=== PATIENT | female | born 1995 | race Caucasian/White ===

== ENCOUNTER → 2019-12-02 16:12 | Observation (INO) | END | disposition home or self-care (01) | LOC: 1NENULAB | PROVIDERS: ADMIT Advanced Practice Midwife; ATTEND Advanced Practice Midwife ==

== ENCOUNTER 2019-12-08 01:40 | Observation (INO) ==
[2019-12-08] MEDS ORDERED: Famotidine 20 MG/2 ML VIAL IVP PRN (01:53)
[2019-12-08] MEDS ORDERED: Metoclopramide 10 MG/2 ML VIAL IVP PRN (01:53)
[2019-12-08] MEDS ORDERED: Ondansetron 4 MG/2 ML VIAL IVP PRN (01:53)
[2019-12-08] MEDS ORDERED: Lidocaine 1% 20 ML MDV INFILT PRN (01:53)
[2019-12-08] MEDS ORDERED: *HR* FentaNYL (PF) 100 MCG/2 ML VIAL IVP PRN (01:53)
[2019-12-08] MEDS ORDERED: Naloxone 0.4 MG/ML INJ IVP PRN (01:53)
[2019-12-08 02:25] LABS: Basophils % 0.3 %; Eosinophils # 0.3 K/mcL (0.0-0.6); Eosinophils % 2.8 %; Hemoglobin 11.9 g/dL (11.5-15.4); Immature Granulocytes % 0.6 % (0-4); Lymphocytes % 24.8 %; Mean Corpuscular HGB Conc 31.3 g/dL (31.6-35.5); Mean Corpuscular Hemoglobin 26.8 pg (28.0-33.3); Mean Corpuscular Volume 85.6 fL (83.0-100.0); Mean Platelet Volume 13.1 fL (9.4-12.4); Monocytes # 1.1 K/mcL (0.0-1.3); Neutrophils # 7.5 K/mcL (1.6-8.9); Platelet Count 178 K/mcL (140-400); Red Blood Count 4.44 M/mcL (3.82-4.97); Red Cell Distribution Width 14.4 % (11.5-14.5); Segmented Neutrophils % 62.5 %
[2019-12-08] MEDS ORDERED: Ringers Solution, Lactated 1,000 ML ONE (02:28)
[2019-12-08 02:34] LABS: Amphetamine Screen,Urine Negative ng/mL (Cutoff=1000); Barbiturate Screen,Urine Negative ng/mL (Cutoff=200); Benzodiazepines Screen,Urine Negative ng/mL (Cutoff=200); Cannabinoid Screen,Urine Negative ng/mL (Cutoff = 50); Cocaine Screen,Urine Negative ng/mL (Cutoff= 300); Opiate Screen,Urine Negative ng/mL (Cutoff=300); Phencyclidine Screen,Urine Negative ng/mL (Cutoff=25)
[2019-12-08] MEDS ORDERED: *HR* FentaNYL (PF) 100 MCG/2 ML VIAL EP ONE (02:52)
[2019-12-08] MEDS ORDERED: Bupivacaine-MPF 0.25% 10 ML VIAL EP ONE (02:52)
[2019-12-08] MEDS ORDERED: EPHEDrine 50 MG/ML VIAL IVP PRN (02:52)
[2019-12-08] MEDS ORDERED: *HR* FentaNYL (PF) 100 MCG/2 ML VIAL ONE (02:53)
[2019-12-08] MEDS ORDERED: Bupivacaine-MPF 0.25% 10 ML VIAL ONE (02:53)
[2019-12-08] MEDS ORDERED: Epidural Premix (fent/bupiv) 110 ML EP SCH (03:00)
[2019-12-08] MEDS: Ringers Solution, Lactated 1,000 ML IVC SCH ×2 (03:45→03:49)
[2019-12-08] MEDS ORDERED: Oxytocin 20 units/ LR 1000 mL 20 UNIT/1,000 ML BAG IVC SCH ×2 (05:45→13:33)
[2019-12-08] MEDS ORDERED: Measles/Mumps/Rubella Vacc 0.5 ML VIAL SQ PRN (13:33)
[2019-12-08] MEDS ORDERED: Benzocaine/Menthol 56 GM AEROSOL SPRAY TP PRN (13:33)
[2019-12-08] MEDS ORDERED: Ibuprofen 600 MG TABLET PO PRN (13:33)
[2019-12-08] MEDS ORDERED: Acetaminophen 325 MG TABLET PO PRN (13:33)
[2019-12-08] MEDS ORDERED: *HR* HYDROcodone/Acet 5/325 mg TABLET PO PRN (13:33)
[2019-12-09 08:08] VITALS: BP 95/60
[2019-12-09] MEDS ORDERED: Prenatal Vit/FA 1 EACH TABLET PO SCH (09:00)
== END 2019-12-09 13:11 | disposition home or self-care (01) ==
LOC: 1NENULAB → OBSVTOIN 01:40 → INTOOBSV 01:40 → 1NENULAB 01:57 → 1NENUOBS 13:26
PROVIDERS: ADMIT Advanced Practice Midwife; ATTEND Advanced Practice Midwife

== ENCOUNTER 2022-05-11 11:33 | Observation (INO) ==
[2022-05-11 12:07] LABS: Bacteria,Urine Few per hpf (None-Few); Bilirubin,Urine Negative (Negative); Blood,Urine Small (Negative); Clarity,Urine Turbid (Clear); Color,Urine Yellow (Yellow); Glucose,Urine (UA) 50 mg/dL (Normal); Ketones,Urine Trace mg/dL (Negative); Leukocyte Esterase,Urine Small (Negative); Mucus,Urine Few per lpf (None-Few); Nitrite,Urine Negative (Negative); Protein,Urine 30 mg/dL (Neg-Trace); RBC,Urine 30-50 per hpf (0-3); Squamous Epithelial Cell,Urine Few per hpf (None-Few); Urobilinogen,Urine Normal (Normal)
[2022-05-12] MEDS ORDERED: Prenatal Vit/FA 1 EACH TABLET PO SCH (09:00)
== END 2022-05-11 13:07 | disposition home or self-care (01) ==
LOC: 1NENULAB
PROVIDERS: ADMIT Obstetrics & Gynecology; ATTEND Obstetrics & Gynecology

== ENCOUNTER 2022-07-24 09:11 | Inpatient (IN) ==
[~2022-07-24 09:11] MED LIST: *HR* Nalbuphine 10 MG/ML AMPUL IV PRN; Azithromycin 500 MG in 0.9 % Sodium Chloride 250 ML IVPB PRN; Famotidine 20 MG/2 ML VIAL IVP PRN; Lidocaine 1% 20 ML MDV INFILT PRN; Metoclopramide 10 MG/2 ML VIAL IVP PRN; Naloxone 0.4 MG/ML INJ IVP PRN; Ondansetron 4 MG/2 ML VIAL IVP PRN
[2022-07-24] MEDS ORDERED: Ringers Solution, Lactated 1,000 ML IVC SCH (09:15)
[2022-07-24] MEDS ORDERED: EPHEDrine sulfate 50 MG/10 ML VIAL IVP PRN (10:11)
[2022-07-24] MEDS ORDERED: Epidural Premix (fent/bupiv) 110 ML EP SCH (10:15)
[2022-07-24 10:19] LABS: Basophils % 0.3 %; Eosinophils # 0.2 K/mcL (0.0-0.6); Eosinophils % 1.5 %; Hematocrit 38.3 % (35.3-44.9); Hemoglobin 11.7 g/dL (11.5-15.4); Immature Granulocytes % 0.6 % (0-4); Lymphocytes # 1.6 K/mcL (0.6-4.6); Lymphocytes % 16.5 %; Mean Corpuscular HGB Conc 30.5 g/dL (31.6-35.5); Mean Corpuscular Hemoglobin 24.1 pg (28.0-33.3); Mean Corpuscular Volume 78.8 fL (83.0-100.0); Mean Platelet Volume 12.1 fL (9.4-12.4); Monocytes # 0.8 K/mcL (0.0-1.3); Monocytes % 8.5 %; Neutrophils # 7.2 K/mcL (1.6-8.9); Platelet Count 227 K/mcL (140-400); Red Blood Count 4.86 M/mcL (3.82-4.97); Red Cell Distribution Width 15.2 % (11.5-14.5); Segmented Neutrophils % 72.6 %; White Blood Count 9.9 K/mcL (4.3-11.1)
[2022-07-24 11:25] LABS: Amphetamine Screen,Urine Negative ng/mL (Cutoff=1000); Barbiturate Screen,Urine Negative ng/mL (Cutoff=200); Benzodiazepines Screen,Urine Negative ng/mL (Cutoff=200); Cannabinoid Screen,Urine Negative ng/mL (Cutoff = 50); Cocaine Screen,Urine Negative ng/mL (Cutoff= 300); Opiate Screen,Urine Negative ng/mL (Cutoff=300); Phencyclidine Screen,Urine Negative ng/mL (Cutoff=25)
[2022-07-24] MEDS ORDERED: Oxytocin 30 UNIT/503 ML BAG IVC ONE (14:34)
[2022-07-24] MEDS ORDERED: Ondansetron ODT 4 MG TAB.RAPDIS SL PRN (16:34)
[2022-07-24] MEDS ORDERED: Oxytocin 30 UNIT/503 ML BAG IVC SCH (16:34)
[2022-07-24] MEDS ORDERED: OXYTOCIN/RINGERS LACTATE 10 UNIT/166.6 ML BAG IVC ONE (16:34)
[2022-07-24] MEDS ORDERED: Benzocaine/Menthol 56 GM AEROSOL SPRAY TP PRN (16:34)
[2022-07-24] MEDS ORDERED: Lanolin 7 G OINT...G. TP PRN (16:34)
[2022-07-24 20:24] VITALS: O2SAT 97
[2022-07-24] MEDS: Ibuprofen 600 MG TABLET PO SCH (20:57)
[2022-07-24] MEDS: Acetaminophen 325 MG TABLET PO SCH (20:57)
[2022-07-25 07:36] VITALS: BP 105/63; PULSE 74; TEMP 98.8
[2022-07-25] MEDS ORDERED: Prenatal Vit/FA 1 EACH TABLET PO SCH (09:00)
[2022-07-25] MEDS: Ibuprofen 600 MG TABLET PO SCH (09:06)
[2022-07-25] MEDS: Acetaminophen 325 MG TABLET PO SCH (09:06)
== END 2022-07-25 15:32 | disposition home or self-care (01) | DRG 807 ==
LOC: 1NENULAB → 1NENUOBS 16:34
PROVIDERS: ADMIT Registered Nurse; ATTEND Registered Nurse